=== PATIENT | female | born 1945 | race Asian ===

== ENCOUNTER 2020-07-12 12:37 | Outpatient (CLI) | payer MEDICARE, OTHER | END 2020-07-12 12:38 | disposition home or self-care (01) | LOC: CSHULT 12:37 | PROVIDERS: ATTEND Internal Medicine | DX: I34.0 Nonrheumatic mitral (valve) insufficiency (principal); N18.31 Chronic kidney disease, stage 3a; I07.1 Rheumatic tricuspid insufficiency; I37.1 Nonrheumatic pulmonary valve insufficiency | CPT/HCPCS: 93306 ==